=== PATIENT | female | born 1995 | race African-American/Black ===

== ENCOUNTER 2017-07-21 22:36 | Emergency (ER) | payer BC ==
[~2017-07-21] VITALS: Ht 162.6 cm; Wt 86.2 kg
[2017-07-21 23:51] LABS: BASO % 0 % (0-3); EOS % 0 % (0-3); HEMATOCRIT 41.6 % (36.0-47.0); HEMOGLOBIN 13.9 g/dL (12.0-15.5); LYMPH # 0.7 x10^3/uL (1.0-4.8); LYMPH % 8 % (24-48); MEAN CORPUSCULAR HEMOGLOBIN 28 pg (25-35); MEAN CORPUSCULAR HGB CONC 33 g/dL (31-37); MEAN CORPUSCULAR VOLUME 83 fL (79-100); MONO # 0.4 x10^3/uL (0.0-1.1); MONO % 5 % (0-9); NEUT # 6.8 x10^3uL (1.8-7.7); NEUT % 87 % (31-73); PLATELET COUNT 252 x10^3/uL (140-400); RED CELL DISTRIBUTION WIDTH 16.5 % (11.5-14.5); WHITE BLOOD COUNT 7.9 x10^3/uL (4.0-11.0)
[2017-07-21 23:56] LABS: ALBUMIN 3.4 g/dL (3.4-5.0); ALBUMIN/GLOBULIN RATIO 0.7 (1.0-1.7); CALCIUM 8.9 mg/dL (8.5-10.1); CREATININE 0.6 mg/dL (0.6-1.0); GFR 155.8; TOTAL BILIRUBIN 0.3 mg/dL (0.2-1.0); TOTAL PROTEIN 8.3 g/dL (6.4-8.2)
[2017-07-21 23:57] LABS: POTASSIUM 4.1 mmol/L (3.5-5.1)
[2017-07-22] MEDS ORDERED: IV NORMAL SALINE 1,000ML 1,000 ML IV SCH
[2017-07-22] MEDS ORDERED: ONDANSETRON PF 4 MG/2 ML VIAL. IV ONE (00:15)
[2017-07-22] MEDS ORDERED: IV NORMAL SALINE 50ML 50 ML ONE (00:24)
[2017-07-22] MEDS ORDERED: PROMETHAZINE 25 MG/ML VIAL IV ONE (00:24)
[2017-07-22] MEDS ORDERED: FAMOTIDINE 20 MG/2 ML VIAL IVP ONE (00:30)
[2017-07-22] MEDS ORDERED: PROMETHAZINE 25 MG in IV NORMAL SALINE 50ML 50 ML IV PRN (00:30)
[2017-07-22] MEDS ORDERED: ONDA4TAB10 PO (00:44)
--- NOTE | 2017-07-22 00:48 | PHYS DOC ---
General Chief Complaint: NAUSEA/VOMITING/DIARRHEA Stated Complaint: FLU SYMPTOMS,N/V,COUGH Time Seen by MD: 22:43 Source: patient Exam Limitations: no limitations Problems: History of Present Illness Initial Comments Patient is a 21-year-old female who comes to the ED complaining of nausea vomiting and diarrhea. Patient states that she's been exposed to several other individuals with similar symptoms recently. She awoke this morning with nausea and states that she's had by mouth intolerance with vomiting all day. On ED arrival she complains of headache and mild dizziness with ambulation only noted while lying down. No measured fevers no neck stiffness or rash no bad food exposure or travel. No focal abdominal pain complaints and the patient denies any urinary symptoms. She's had one loose watery stool today not long before ED arrival, no blood noted in stools or emesis. Vital signs are stable Timing/Duration: 24 hours Severity: severe Modifying Factors: worse with eating, worse with movement, improves with rest Associated Symptoms: fever/chills, headaches, nausea/vomiting, weakness Allergies: Coded Allergies: amoxicillin (Verified Allergy, Unknown, 07/22/17) clavulanic acid (Verified Allergy, Unknown, 07/22/17) Past Medical History Medical History: no pertinent history Surgical History: noncontributory Social History Smoker: non-smoker Alcohol: none Drugs: none Review of Systems Constitutional: see HPI Respiratory: denies cough, denies shortness of breath Cardiovascular: denies chest pain, denies palpitations Gastrointestinal: see HPI Genitourinary: denies discharge, denies dysuria, denies frequency, denies hematuria Musculoskeletal: denies back pain, denies joint swelling, muscle pain, denies neck pain Psychiatric/Neurological: headache, denies numbness, denies paresthesia Hematologic/Lymphatic: denies blood clots, denies easy bleeding, denies easy bruising Physical Exam General Appearance: WD/WN, moderate distress Ear, Nose, Throat: hearing grossly normal, normal ENT inspection, normal pharynx (dry membranes) Neck: non-tender, supple Respiratory: normal breath sounds, no respiratory distress Cardiovascular: normal peripheral pulses, regular rate, rhythm Gastrointestinal: normal bowel sounds, non tender, soft (nondistended, abdominal muscle tenderness from vomiting noted negative Pina negative McBurney), no organomegaly Rectal: deferred Back: no CVA tenderness, no vertebral tenderness Extremities: non-tender, normal inspection 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 She is of the opinion that she has a stomach virus and I am in agreement, I discussed signs and symptoms to monitor as well as indications for urgent return to the department. I discussed aggressive hydration and dietary modification as well as [id number] prescription medications. Her questions were answered to her satisfaction and she expressed agreement and understanding with the treatment plan, her discharge is entered by me and will be executed pending she received the rest of her IV fluids. Departure Time of Disposition: 00:46 Disposition: 01 HOME, SELF-CARE Diagnosis: Viral gastroenteritis, dehydration Condition: GOOD Patient Instructions: Dehydration, Adult, [id number], Viral Gastroenteritis, [id number] Additional Instructions: Please review the patient education materials given by ED staff. School excuse through July 24. Clear liquids tomorrow, advance diet slowly as tolerated after that. Aggressive hydration with Gatorade and water. [id number] Tylenol as needed for discomfort. Zofran ODT start pack was dispensed to you tonight as well as PRESCRIPTION given , take one every 6 hours as needed for nausea. Follow-up with your doctor in 5-7 days if not better. Return to ED with new or changing symptoms. GOKUL LOPEZ DO Jul 22, 2017 00:48
[2017-07-22] MEDS ORDERED: ONDANSETRON 4MG ODT 4TABLET STARTPACK. PO ONE (01:00)
[2017-07-22 01:51] VITALS: BP 111/73
== END 2017-07-22 01:51 | disposition home or self-care (01) ==
LOC: ER 22:36
DX: A08.4 Viral intestinal infection, unspecified (principal); E86.0 Dehydration; R51 Headache; Z88.1 Allergy status to other antibiotic agents
CPT/HCPCS: 36415; 80053; 83690; 85025; 96365; 96375; 99284; J2405; J2550; Q0162; S0028; J7030